=== PATIENT | male | born 1935 | race Caucasian/White ===

== ENCOUNTER 2018-12-11 19:17 | Emergency (ER) | payer MEDICARE ==
[~2018-12-11 19:17] MED LIST: ISOVUE-370 76%-LOCM 1 ML ONE
[2018-12-11 20:03] LABS: #Eosinphils 0.1 thou/uL (0.0-0.7); #Lymphocytes 1.8 thou/uL (1.20-3.40); #Neutrophils 7.5 thou/uL (1.40-6.50); %Basophils 0.5 % (0.0-1.0); %Monocytes 9.5 % (0.0-10.0); Hemoglobin 14.1 g/dL (14.0-18.0); Mean Corpuscular HGB CONC 34.1 g/dL (32.0-36.0); Mean Corpuscular Hemoglobin 30.2 pg (27.0-31.0); Mean Corpuscular Volume 88.5 fL (78.0-98.0); Mean Platelet Volume 7.7 fL (7.4-10.4); Platelet Count 233 thou/uL (130-400); RBC Distribution Width 12.5 % (11.5-14.5); Red Blood Cell (RBC) Count 4.68 mill/uL (4.70-6.10); White Blood Cell (WBC) Count 10.4 thou/uL (4.8-10.8)
[2018-12-11 20:25] LABS: Bilirubin Negative (Negative); Blood, Urine 1+ (Negative); Clarity Clear (Clear); Glucose, Urine (Dipstick) Normal (Negative); Leukocyte 500 Leu/uL (Negative); Nitrite Negative (Negative); Protein, Urine (Dipstick) 20 mg/dL (Neg-Trace); Squamous Epithelial 0-3 HPF (0-3); Urobilinogen Normal mg/dL (Less than 2); WBC/HPF Greater than 50 HPF (0-3)
[2018-12-11 20:29] LABS: ALT (SGPT) 10 U/L (8-55); AST (SGOT) 10 U/L (5-34); Albumin 4.1 g/dL (3.4-4.8); Alkaline Phosphatase 65 U/L (40-110); Anion Gap 13 mmol/L (10-20); BUN (Urea Nitrogen) 19 mg/dL (8.4-25.7); Bilirubin, Total 0.4 mg/dL (0.2-1.2); Calc. Creatinine Clearance 0 mL/min (70-130); Calcium 10.2 mg/dL (7.8-10.44); Carbon Dioxide 26 mmol/L (23-31); Chloride 102 mmol/L (98-107); Estimated GFR-MDRD 51; Globulin 2.5 g/dL (2.4-3.5); Glucose 157 mg/dL (83-110); Lipase 17 U/L (8-78); Potassium 4.4 mmol/L (3.5-5.1); Protein, Total 6.6 g/dL (5.8-8.1); Sodium 137 mmol/L (136-145)
[2018-12-11 20:34] LABS: Bacteria/HPF None Seen HPF (None Seen)
--- NOTE | 2018-12-11 21:01 | CT ---
CT Abdomen Pelvis W Con: 12/11/2018 12:00 AM CLINICAL INFORMATION: Right lower quadrant abdominal pain and fever COMPARISON: None. TECHNIQUE: Multiple contiguous axial images were obtained and a CT of the abdomen and pelvis with IV contrast. C oronal and sagittal reformats were performed. FINDINGS: Lower Chest: Bibasilar atelectasis. Abdomen: Liver: 2.7 cm hypodensity which does not appear definitely well-circumscribed and may represent a hem angioma. Bile Ducts: Normal caliber. Gallbladder: No calcified gallstones. Normal caliber wall. Pancreas: within normal limits. Spleen: within normal limits. Adrenals: within normal limits. Kidneys: Mild to moderate right hydronephrosis. No delay in the right nephrogram compared to the left . There is a 5 mm nonobstructing calcification in the left kidney. Pelvis: Reproductive Organs: Brachytherapy seeds are seen in the prostate. Ureters: 5 mm calcification in the mid right ureter with dilatation of the proximal right ureter. Bladder: Right bladder diverticula. Peritoneum: No ascites or free air, no fluid collection. Bowel: Normal caliber. Scattered diverticula in the colon. Mesentery and Retroperitoneum: No enlarged mesenteric or retroperitoneal lymph nodes. Vessels: Atherosclerotic calcifications. Abdominal Wall: within normal limits. Bones: Degenerative changes in the spine. IMPRESSION: 1. Right mid ureteral calcification with right-sided hydronephrosis. 2. Nonobstructing left renal calcification 3. Nonspecific hepatic hypodensity. This may represent a focal liver mass that could be benign or mal ignant. 4. Diverticulosis
== END 2018-12-11 21:30 | disposition home or self-care (01) ==
LOC: ERS 19:17
DX: N13.2 Hydronephrosis with renal and ureteral calculous obstruction (principal); K21.9 Gastro-esophageal reflux disease without esophagitis; I10 Essential (primary) hypertension; E11.9 Type 2 diabetes mellitus without complications; I48.91 Unspecified atrial fibrillation; Z79.899 Other long term (current) drug therapy; Z79.84 Long term (current) use of oral hypoglycemic drugs
CPT/HCPCS: 36415; 74177; 80053; 81003; 81015; 83690; 85025; Q9966

== ENCOUNTER 2019-01-07 09:28 | Outpatient (CLI) | payer MEDICARE ==
--- NOTE | 2019-01-07 14:16 | CT ---
CT ABDOMEN AND PELVIS WITHOUT IV CONTRAST: INDICATION: Hematuria. COMPARISON: Prior examination dated 12/11/2018. FINDINGS: There are small bilateral pleural effusions, left greater than right. There are areas of subsegmental volume loss involving both lower lobes. There is a small pericardial effusion. Hypodense mass involving the right hepatic lobe is not appreciably changed on image 31 of series 2. The exophytic hyperdense lesion involving the superior pole left kidney on image 40 of series 2 is no t appreciably changed. There is a 5 mm nonobstructing calculus within the left mid kidney. No definite ureteral calculus is evident. Small phleboliths seen adjacent to the distal right ureter in the right hemipelvis. No hydronephrosis is noted. There is moderate vascular calcification involving the abdominopelvic vasculature. There is a moderate amount retained stool within the colon. There are scattered colonic diverticula w ithout evidence of active diverticulitis. Appendix is not definitely seen. The small bowel is of normal caliber. There is a small right posterolateral bladder diverticulum that is stable. Brachytherapy beads are ag ain seen within the lower pelvis within the prostate. There is diffuse osteopenia. There is a stable superior endplate compression abnormality of L3. Anter ior translation of L3 on L4 is stable. Diffuse osteopenia is stable. IMPRESSION: 1. No ureteral calculus or hydronephrosis demonstrated. 2. Stable exophytic lesion off the superior pole of the left kidney. This is incompletely characteriz ed on the current examination and may reflect proteinaceous cyst or solid mass. Renal ultrasound may be helpful for additional characterization. 3. Stable left nephrolithiasis. 4. Small pleural effusions with bibasilar atelectasis. There is a small pericardial effusion. 5. Moderate amount of retained stool within the colon. 6. Brachytherapy beads and stable posterolateral right sided bladder diverticulum. Transcribed Date/Time: 01/07/2019 2:32 PM
== END 2019-01-07 09:29 | disposition home or self-care (01) ==
LOC: CT 09:28
PROVIDERS: ATTEND Urology
DX: N20.1 Calculus of ureter (principal); N28.9 Disorder of kidney and ureter, unspecified; N20.0 Calculus of kidney; J90 Pleural effusion, not elsewhere classified; I31.3 Pericardial effusion (noninflammatory); J98.11 Atelectasis; N32.3 Diverticulum of bladder; K59.00 Constipation, unspecified
CPT/HCPCS: 74176

== ENCOUNTER 2019-03-09 21:45 | Inpatient (IN) | payer MEDICARE ==
[~2019-03-09 21:45] MED LIST changes: -ISOVUE-370 76%-LOCM 1 ML ONE; +Iopamidol-370 76% 500 ML 1 ML ONE
--- NOTE | 2019-03-09 22:12 | RAD ---
Chest AP view INDICATION: Chest pain COMPARISON: None FINDINGS: Lungs:There is airspace opacity within the retrocardiac left lower lobe with obscuration of the left hemidiaphragm. Cardiac silhouette:There is moderate cardiomegaly Pulmonary vasculature:There is mild pulmonary vascular congestion Pleural spaces:There is a small left and tiny right pleural effusion Upper abdomen:No abnormality seen. Osseous structures: No acute osseous abnormality. Additional findings:None. IMPRESSION: Findings of mild CHF. Airspace opacity in left lower lobe may reflect atelectasis or pneu monia. Recommend continued follow-up.
[2019-03-09 22:24] LABS: #Eosinphils 0.1 thou/uL (0.0-0.7); #Lymphocytes 1.6 thou/uL (1.20-3.40); #Monocytes 1.1 thou/uL (0.11-0.59); #Neutrophils 7.9 thou/uL (1.40-6.50); %Basophils 0.1 % (0.0-1.0); %Eosinophils 0.9 % (0.0-10.0); %Lymphocytes 15.1 % (21.0-51.0); %Monocytes 9.9 % (0.0-10.0); %Neutrophils 74.1 % (42.0-75.0); Hemoglobin 14.2 g/dL (14.0-18.0); Mean Corpuscular HGB CONC 33.1 g/dL (32.0-36.0); Mean Corpuscular Hemoglobin 29.9 pg (27.0-31.0); Mean Corpuscular Volume 90.6 fL (78.0-98.0); Mean Platelet Volume 8.1 fL (7.4-10.4); Platelet Count 232 thou/uL (130-400); RBC Distribution Width 12.1 % (11.5-14.5); Red Blood Cell (RBC) Count 4.73 mill/uL (4.70-6.10); White Blood Cell (WBC) Count 10.6 thou/uL (4.8-10.8)
[2019-03-09 22:45] LABS: ALT (SGPT) 10 U/L (8-55); AST (SGOT) 7 U/L (5-34); Albumin 4.2 g/dL (3.4-4.8); Alkaline Phosphatase 69 U/L (40-110); Anion Gap 15 mmol/L (10-20); BUN (Urea Nitrogen) 14 mg/dL (8.4-25.7); Bilirubin, Total 0.7 mg/dL (0.2-1.2); CK (CPK) 24 U/L (30-200); Calc. Creatinine Clearance 0 mL/min (70-130); Calcium 10.6 mg/dL (7.8-10.44); Carbon Dioxide 25 mmol/L (23-31); Chloride 104 mmol/L (98-107); Estimated GFR-MDRD 67; Globulin 2.6 g/dL (2.4-3.5); Glucose 195 mg/dL (83-110); Potassium 4.4 mmol/L (3.5-5.1); Protein, Total 6.8 g/dL (5.8-8.1); Sodium 140 mmol/L (136-145)
[2019-03-09] MEDS ORDERED: Nitroglycerin 0.4 MG TAB 1 EACH ONE (22:54)
--- NOTE | 2019-03-09 23:29 | CT ---
CTA OF THE CHEST AND ABDOMEN UTILIZING AN AORTIC DISSECTION PROTOCOL AND 3-D REFORMATTED IMAGING INDICATION: Chest pain COMPARISON: CT the abdomen and pelvis dated December 11, 2018 FINDINGS: Aorta: No acute aortic stenosis, occlusion or aneurysmal formation demonstrated. Central pulmonary artery: There is partially occlusive thrombus seen within the distal right main pul monary artery with occlusive thrombus extending into the superior right lower lobe segmental pulmonary arterial branch. There is some partially occlusive thrombus seen within segmental branches of the right lower lobe as well as within the lateral right middle lobe. There is occlusive thrombus seen within the lingular lobar pulmonary artery. There is a few partially occlusive thrombi seen within segmental branches of the left lower lobe. Additional thorax findings: There are small bilateral pleural effusions, left greater than right with bibasilar atelectasis. There are coronary artery and thoracic aortic calcifications. Additional abdominal findings: There is a septated cyst within the right hepatic lobe measuring 2.5 c m. Additional smaller cyst is seen within the medial left hepatic lobe that are subcentimeter. An additional 7 mm cyst is seen within the right hepatic lobe. There is a 1.4 cm superior pole left felton l cyst. There is a 4 mm nonobstructing left renal calculus. Right kidney is normal-appearing. Adrenal glands appear within normal limits. Spleen appears within normal limits. No enlarged lymph no zahra are evident. 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 There is mil d narrowing involving the proximal SMA. There is severe narrowing involving the origin of the left renal artery. There is mild narrowing involving the origin of the right renal artery. There is severe narrowing involving the origin of PUJA. Osseous structures: There is a remote superior endplate compression abnormality of L3. There is diffu se osteopenia. There is scattered degenerative and osteoarthritic change present. IMPRESSION: 1. No appreciable aortic stenosis, occlusion or aneurysmal formation demonstrated. 2. Scattered pulmonary embolus as above. Findings called to Dr. Keane at 11:20 PM on March 09. 3. Small bilateral pleural effusions with bibasilar atelectasis. 4. Hepatic and left renal cysts. Left nephrolithiasis. 5. 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 6. Severe narrowing involving the origin of the left renal artery mild narrowing involving the origin of the right renal artery. 7. Severe narrowing of the origin of the PUJA.
[2019-03-09] MEDS ORDERED: Enoxaparin Sodium 100 MG/ML SYRINGE ONE (23:46)
[2019-03-10] MEDS ORDERED: Ondansetron ODT 4 MG TAB PO PRN (00:48)
[2019-03-10] MEDS ORDERED: Calcium Carbonate 500 MG ChewTAB PO PRN (00:48)
[2019-03-10] MEDS ORDERED: Acetaminophen 325 MG TAB PO PRN (00:48)
[2019-03-10] MEDS ORDERED: traZODone HCl 50 MG TAB PO PRN (01:11)
[2019-03-10] MEDS ORDERED: cloNIDine 0.1 MG TAB PO PRN (01:11)
[2019-03-10] MEDS ORDERED: Nitroglycerin 0.4 MG TAB (25 Tab Bottle) SL PRN (01:11)
[2019-03-10] MEDS ORDERED: Polyethylene Glycol 3350 17 GM Packet PO PRN (01:11)
[2019-03-10] MEDS ORDERED: Docusate 100 MG CAP PO PRN (01:11)
--- NOTE | 2019-03-10 01:13 | PDOC.FPRHP ---
- History of Present Illness Chief Complaint: chest pain History of Present Illness: Patient is an 83M with PMHx of afib, HTN, CKD3, DM2 that presents with chest pain. Patient reports that [facility] while he was [facility]. He described the pain as sharp, left-sided, and made worse by deep inspiration. He denied any SOB, cough, n/v. Reports of one episode of loose stool this morning. A&Ox4. Patient reports he is active, though son reportedly stated that he sits in a chair most of the day and is only active with PT for 1hr/day. Patient denies recent travel, denies hx of cancer. He has not been on anticoagulation for his afib. Denies any swelling in his legs though does endorse some pain in his R lower leg. PCP: [facility] ED Course: therapeutic lovenox, nitrostat - Allergies/Adverse Reactions Allergies Allergy/AdvReac Type Severity Reaction Status Date / Time Penicillins Allergy Verified 03/10/19 02:47 - Home Medications Medication Instructions Recorded Confirmed Type Acetaminophen 650 mg PO Q4H PRN 03/10/19 03/10/19 History Acetaminophen With Codeine 1 tablet PO Q6HR PRN 03/10/19 03/10/19 History [Tylenol with Codeine #3] Butalb/Acetaminophen/Caffeine 2 tab PO Q4H PRN 03/10/19 03/10/19 History [Esgic 50-325-40 mg Tablet] Carvedilol 12.5 mg PO BID 03/10/19 03/10/19 History Digoxin [Digox] 125 mcg PO DAILY 03/10/19 03/10/19 History Diltiazem HCl [Dilt-XR] 120 mg PO DAILY 03/10/19 03/10/19 History Docusate [Colace] 100 mg PO BID PRN 03/10/19 03/10/19 History Famotidine 20 mg PO BID 03/10/19 03/10/19 History Folic Acid 1 mg PO DAILY 03/10/19 03/10/19 History Mirtazapine [Remeron] 7.5 mg PO HS 03/10/19 03/10/19 History Nitroglycerin [Nitrostat] 0.4 mg SL Q5MIN 03/10/19 03/10/19 History Polyethylene Glycol 3350 [Miralax] 17 gm PO DAILY PRN 03/10/19 03/10/19 History Potassium Chloride 10 meq PO DAILY 03/10/19 03/10/19 History cloNIDine [Catapres] 0.1 mg PO Q6H PRN 03/10/19 03/10/19 History metFORMIN HCl [Metformin HCl ER] 1,000 mg PO DAILY 03/10/19 03/10/19 History traZODone HCl [Trazodone HCl] 25 mg PO HS PRN 03/10/19 03/10/19 History - History PMHx: afib, HTN, CKD3, DM2 PSHx: appendectomy, R shoulder sx FHx: non-contributory Social: previous smoker, occasional etoh use, no drug use - Review of Systems General: denies: fever/chills, weight/appetite/sleep changes Eyes: denies: eye pain, vision changes ENT: denies: nasal congestion, rhinorrhea Respiratory: denies: cough, shortness of breath Cardiovascular: reports: chest pain. denies: palpitation, edema Gastrointestinal: reports: diarrhea. denies: nausea, vomiting Genitourinary: denies: dysuria, polyuria Skin: denies: rashes, jaundice Musculoskeletal: denies: pain, tenderness Neurological: denies: numbness, syncope Psychological: denies: anxiety, depression - Vital signs BP: [133/98] HR: [70] RR: [18] Tmax: [98.1] Pox: [95]% on [RA] Wt: [90.31kg] - Physical Exam Constitutional: NAD, awake, alert and oriented, well developed HEENT: normocephalic and atraumatic, EOMI, MMM Neck: supple, FROM Chest: no-tender to palpation, no lesions Heart: normal S1/S2, other (irregularly irregular rhythm, no edema of BLE) Lungs: CTAB, no respiratory distress Abdomen: soft, non-tender Musculoskeletal: normal structure, normal tone, ROM grossly normal, other ( negative homans sign) Neurological: no focal deficit, normal sensation Skin: no rash/lesions, good turgor Heme/Lymphatic: no unusual bruising or bleeding, no purpura Psychiatric: normal mood and affect FMR H&P: Results - Labs Result Diagrams: 03/10/19 04:24 03/10/19 04:24 Lab results: WBC 10.6 thou/uL (4.8-10.8) 03/09/19 22:12 Hgb 14.2 g/dL (14.0-18.0) 03/09/19 22:12 Hct 42.8 % (42.0-52.0) 03/09/19 22:12 MCV 90.6 fL (78.0-98.0) 03/09/19 22:12 Plt Count 232 thou/uL (130-400) 03/09/19 22:12 Neutrophils % 74.1 % (42.0-75.0) 03/09/19 22:12 Sodium 140 mmol/L (136-145) 03/09/19 22:12 Potassium 4.4 mmol/L (3.5-5.1) 03/09/19 22:12 Chloride 104 mmol/L (98-107) 03/09/19 22:12 Carbon Dioxide 25 mmol/L (23-31) 03/09/19 22:12 BUN 14 mg/dL (8.4-25.7) 03/09/19 22:12 Creatinine 1.05 mg/dL (0.7-1.3) 03/09/19 22:12 Glucose 195 mg/dL (83-110) H 03/09/19 22:12 Calcium 10.6 mg/dL (7.8-10.44) H 03/09/19 22:12 Total Bilirubin 0.7 mg/dL (0.2-1.2) 03/09/19 22:12 AST 7 U/L (5-34) 03/09/19 22:12 ALT 10 U/L (8-55) 03/09/19 22:12 Alkaline Phosphatase 69 U/L (40-110) 03/09/19 22:12 Creatine Kinase 24 U/L (30-200) L 03/09/19 22:12 B-Natriuretic Peptide 88.5 pg/mL (0-100) 03/09/19 22:12 Serum Total Protein 6.8 g/dL (5.8-8.1) 03/09/19 22:12 Albumin 4.2 g/dL (3.4-4.8) 03/09/19 22:12 - Radiology Interpretation Chest x-ray Status: report reviewed by me (Aorta: No acute aortic stenosis, occlusion or aneurysmal formation demonstrated. Central pulmonary artery: There is partially occlusive thrombus seen within the distal right main pul monary artery with occlusive thrombus extending into the superior right lower lobe segmental pulmonary arterial branch. There is some partially occlusive thrombus seen within segmental branches of the right lower lobe as well as within the lateral right middle lobe. There is occlusive thrombus seen within the lingular lobar pulmonary artery. There is a few partially occlusive thrombi seen within segmental branches of the left lower lobe. Additional thorax findings: There are small bilateral pleural effusions, left greater than right with bibasilar atelectasis. There are coronary artery and thoracic aortic calcifications. Additional abdominal findings: There is a septated cyst within the right hepatic lobe measuring 2.5 c m. Additional smaller cyst is seen within the medial left hepatic lobe that are subcentimeter. An additional 7 mm cyst is seen within the right hepatic lobe. There is a 1.4 cm superior pole left felton l cyst. There is a 4 mm nonobstructing left renal calculus. Right kidney is normal-appearing. Adrenal glands appear within normal limits. Spleen appears within normal limits. No enlarged lymph no zahra are evident. 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 There is mil d narrowing involving the proximal SMA. There is severe narrowing involving the origin of the left renal artery. There is mild narrowing involving the origin of the right renal artery. There is severe narrowing involving the origin of PUJA.) FMR H&P: A/P - Problem List (1) Pulmonary embolus Current Visit: Yes Status: Acute Code(s): I26.99 - OTHER PULMONARY EMBOLISM WITHOUT ACUTE COR PULMONALE (2) HTN (hypertension) Current Visit: Yes Status: Chronic Code(s): I10 - ESSENTIAL (PRIMARY) HYPERTENSION (3) Afib Current Visit: Yes Status: Chronic Code(s): I48.91 - UNSPECIFIED ATRIAL FIBRILLATION (4) CKD (chronic kidney disease) stage 3, GFR 30-59 ml/min Current Visit: Yes Status: Chronic Code(s): N18.3 - CHRONIC KIDNEY DISEASE, STAGE 3 (MODERATE) (5) DM2 (diabetes mellitus, type 2) Current Visit: Yes Status: Chronic - Plan Patient is an 83M with PMHx of afib, HTN, CKD3, DM2 that is admitted for pulmonary embolus #Pulmonary embolus -CT chest shows multiple pulmonary emboli throughout lungs, including in right main artery -patient maintaining oxygenation well on RA -no recent travel hx, no known cancer, no known hx of DVT/PE -[facility] outside of daily [facility] -right leg painful though not swollen; bilateral LE dopplers pending -coagulation studies pending -started on therapeutic lovenox in ED, continue -can consider switching to NOAC in am -will monitor on telemetry #Afib -rate controlled currently -had not been on anticoagulation -will continue to monitor on telemetry #HTN -continue home meds #CKD3 -creatinine and GFR improved from when patient was here in december 2018 -avoid renally toxic medications #DM2 -continue home metformin -ACHS accuchecks DVT ppx: therapeutic lovenox Diet: HH, CC Dispo: inpatient for therapeutic anticoagulation for PE; PE workup pending Code: DNAR PCP: [facility] FMR H&P: Upper Level - Pertinent history 83 yo M with PMHx of afib, DM2, and HTN here with complaint of sharp chest pain that radiates to the back which onset earlier this afternoon. In the ED his RR and O2 sat were normal and he had no SOB. CTA in the ED found a R sided PE. He was given lovenox for treatment. Per family he does not get out of his chair very frequently. He complains of R sided leg pain. Notes that chest pain is made worse with deep inspiration PMHx Afib HTN Social Hx No tobacco, etoh or drugs - Pertinent findings See pr intern note for full ROS, PE, vitals, and labs ROS General Denies chills and fever HEENT denies sore throat or ear pain CV Complains of CP. Denies diaphoresis or palpitations Resp Denies SOB or cough GI Denies abdominal pain or n/v denies dysuria and frequency Neuro denies weakness or numbness. PE General A&O x4 HEENT NCAT CV irregularly irregular, no murmur Resp CTA Abd soft, non tender Neuro no focal deficits Extremities no swelling, palpable cords, homans negative - Plan Date/Time: 03/10/19 0113 Jorge Pablo DO, have evaluated this patient and agree with findings/plan as outlined by pr intern resident. Pertinent changes/additions are listed here. 1.PE - Admit to tele -Continue Lovenox, will transition to orals pending insurance -Not currently requiring O2, hemodynamically stable -b/l LE Doppler and hypercoagulability panel 2.HTN -Restart home meds 3.Afib -Known chronic afib. Currently rate controlled. Monitor on tele 4.DM2 -Home meds -Low carb diet -Accucheck ACHS Diet Heart healthy, low carb Code DNAR PPx lovenox Dispo: pt is in fair condition. Would expect 2-3 day hospitalization pending coverage of anticoagulation
[2019-03-10 02:25] LABS: INR-International Normal Ratio 1.1; PTT 34.2 SEC (22.9-36.1); Prothrombin Time 14.6 SEC (12.0-14.7)
[2019-03-10 02:26] LABS: D-Dimer Test 1.11 *mcg/mL (0.27-0.43)
[2019-03-10 02:55] VITALS: BMI 27.0
[2019-03-10 04:53] LABS: #Basophils 0.1 thou/uL (0.0-0.2); #Eosinphils 0.1 thou/uL (0.0-0.7); #Lymphocytes 1.7 thou/uL (1.20-3.40); #Monocytes 1.1 thou/uL (0.11-0.59); #Neutrophils 6.4 thou/uL (1.40-6.50); %Basophils 0.9 % (0.0-1.0); %Eosinophils 0.7 % (0.0-10.0); %Lymphocytes 17.8 % (21.0-51.0); %Monocytes 11.7 % (0.0-10.0); Hemoglobin 13.1 g/dL (14.0-18.0); Mean Corpuscular HGB CONC 31.9 g/dL (32.0-36.0); Mean Corpuscular Hemoglobin 28.8 pg (27.0-31.0); Mean Corpuscular Volume 90.2 fL (78.0-98.0); Mean Platelet Volume 8.4 fL (7.4-10.4); Platelet Count 218 thou/uL (130-400); RBC Distribution Width 12.1 % (11.5-14.5); Red Blood Cell (RBC) Count 4.56 mill/uL (4.70-6.10); White Blood Cell (WBC) Count 9.3 thou/uL (4.8-10.8)
[2019-03-10 05:10] LABS: Anion Gap 13 mmol/L (10-20); BUN (Urea Nitrogen) 13 mg/dL (8.4-25.7); Calc. Creatinine Clearance 76 mL/min (70-130); Calcium 10.4 mg/dL (7.8-10.44); Carbon Dioxide 24 mmol/L (23-31); Chloride 104 mmol/L (98-107); Estimated GFR-MDRD 77; Glucose 175 mg/dL (83-110); Potassium 4.2 mmol/L (3.5-5.1); Sodium 137 mmol/L (136-145)
[2019-03-10] MEDS ORDERED: Potassium Chloride 10 MEQ TAB PO SCH (08:00)
[2019-03-10] MEDS ORDERED: metFORMIN XR 500 MG TAB PO SCH (08:00)
[2019-03-10] MEDS ORDERED: Digoxin 0.125 MG TAB PO SCH (09:00)
[2019-03-10] MEDS ORDERED: Famotidine 20 MG TAB PO SCH (09:00)
[2019-03-10] MEDS ORDERED: Enoxaparin Sodium 100 MG/ML SYRINGE SC SCH (09:00)
[2019-03-10] MEDS ORDERED: Folic Acid 1 MG TAB PO SCH (09:00)
[2019-03-10] MEDS: Carvedilol 25 MG TAB PO SCH ×2 (09:29→15:41)
--- NOTE | 2019-03-10 09:41 | ULT ---
BILATERAL LOWER EXTREMITY VENOUS ULTRASOUND: HISTORY: Pulmonary artery embolism. COMPARISON: None. TECHNIQUE: Multiplanar grayscale and color Doppler images were obtained in a bilateral lower extremity venous ul trasound. Spectral analysis of the Doppler waveforms were performed. FINDINGS: Right lower extremity: There is thrombus in the proximal femoral vein and distal femoral vein. There is lack of compressibility in the mid femoral vein. Left lower extremity: There is lack of compressibility and thrombus in the common femoral vein. There is compressibility, presence of flow in the femoral vein, popliteal vein, posterior tibial vein, greater saphenous vein and profunda femoral vein. IMPRESSION: 1. Nonocclusive thrombus in the proximal and mid right femoral vein. Thrombus may be chronic. 2. Floating thrombus in the left common femoral vein, acute. Transcribed Date/Time: 03/10/2019 9:46 AM
--- NOTE | 2019-03-10 11:14 | HP ---
I have examined the patient and discussed the case with Dr. Camelia Martin. I agreed with her assessment and plan. HISTORY OF PRESENT ILLNESS: Briefly, Mr. River is an 83-year-old white male patient admitted with chest pain. Subsequent workup revealed a pulmonary embolus. He has been admitted for further treatment, workup, and anticoagulation. PHYSICAL EXAMINATION: VITAL SIGNS: His blood pressure is 130/80, heart rate is 70, respirations 18. He is afebrile. His room air pulse ox is 95%. GENERAL: He is hard of hearing, but otherwise appears to be in no distress. He is not overtly tachypneic or express any concerns of dyspnea. He is currently chest pain free. He appears to be alert and oriented, although this is difficult to assess because of his hearing loss. EAR, NOSE, AND THROAT: No erythema or exudate. NECK: Supple. No bruits. CARDIAC: His heart rhythm is irregularly irregular. No gallop or murmur noted. LUNGS: Clear without rales, wheezes, although diminished. He has no respiratory distress. ABDOMEN: Flat and soft without guarding or rebound. NEUROLOGIC: No focal deficits. LABORATORY DATA: CBC; white count is 10,600, hemoglobin 14.2, hematocrit 42.8 with an MCV of 90.6. Chemistry; sodium is 140, potassium 4.4, chloride 104, bicarb 25, BUN 14, and creatinine 1.05. ASSESSMENT: Pulmonary embolus. PLAN: Continue Lovenox. Later transition to Eliquis if insurance allows. Job ID: [id number]
[2019-03-10 13:29] LABS: Cardiolipin IgA Ab 5.6 APL-U/mL (<14 Negative); Cardiolipin IgG Ab Less than 0.5 GPL-U/mL (<10 Negative); Cardiolipin IgM Ab 2.1 MPL-U/mL (<10 Negative); EliA APS New Method **** NEW METHOD ****
[2019-03-10 16:38] VITALS: BP 165/78; TEMP 97.8
[2019-03-10] MEDS ORDERED: Apixaban 5 MG TAB PO SCH (21:00)
[2019-03-10] MEDS ORDERED: Mirtazapine 15 MG TAB PO SCH (21:00)
--- NOTE | 2019-03-12 00:38 | DIS ---
DATE OF ADMISSION: 03/10/2019 DATE OF DISCHARGE: 03/10/2019 DISCHARGE ATTENDING: Adele Rubi, PGY-2. ADMITTING ATTENDING: Alejandro Leigh MD DISCHARGE ATTENDING: Alejandro Leigh MD. CONSULTS: None. PROCEDURES: 1. Chest x-ray on 03/09/2019, findings of mild CHF. Airspace opacity in the left lower lobe, may reflect atelectasis or pneumonia. Recommend continued followup. 2. CT dissection on 03/09/2019, no appreciable aortic stenosis, occlusion, or aneurysm formation demonstrated. Scattered pulmonary emboli as above. There is partially occlusive thrombus seen in the distal right main pulmonary artery with occlusive thrombus extending into the right lower lobe segmental pulmonary arterial branch. There is some partially occlusive thrombus seen within segmental branches of the right lower lobe as well as within the lateral right middle lobe. Occlusive thrombus seen within the lingular lobar pulmonary artery. There are a few partially occlusive thrombi seen within segmental branches of the left lower lobe. Small bilateral pleural effusions with bibasilar atelectasis. Hepatic and left renal cyst. Left nephrolithiasis. 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 Severe narrowing involving the origin of the left renal artery, mild narrowing involving the origin of the right renal artery. Severe narrowing of the origin of PUJA. 3. Venogram on 03/10/2019. Nonocclusive thrombus in the proximal and mid right femoral vein. Thrombus may be chronic. Floating thrombus in the left common femoral vein, acute. PRIMARY DIAGNOSIS: Pulmonary emboli. SECONDARY DIAGNOSES: 1. Atrial fibrillation. 2. Hypertension. 3. Chronic kidney disease 3. 4. Type 2 diabetes. DISCHARGE MEDICATIONS: 1. Eliquis 10 mg b.i.d. x7 days, then 5 mg b.i.d. thereafter. 2. Tylenol 650 mg q.6 hours p.r.n. 3. Tylenol with codeine 1 tablet p.o. q.6 hours p.r.n. 4. Esgic 50/325/40 mg two tablets p.o. q.4 hours p.r.n. 5. Carvedilol 12.5 mg b.i.d. 6. Clonidine 0.1 mg q.6 hours p.r.n. 7. Digoxin 125 mcg daily. 8. Diltiazem extended release 120 mg daily. 9. Colace 100 mg b.i.d. p.r.n. 10. Famotidine 20 mg b.i.d. 11. Folic acid 1 mg p.o. daily. 12. Metformin 1000 mg p.o. daily extended release. 13. Mirtazapine 7.5 mg at bedtime. 14. Nitroglycerin 0.4 mg sublingual q.5 minutes p.r.n. 15. MiraLAX 17 g daily p.r.n. 16. Potassium chloride 10 mEq p.o. daily. 17. Trazodone 25 mg p.o. at bedtime p.r.n. HISTORY OF PRESENT ILLNESS/HOSPITAL COURSE: Mr. River is an 83-year-old man, presents with chest pain and on CT dissection protocol was found to have extensive pulmonary emboli. His chest pain did resolve a little bit prior to discharge and he had Tylenol No.3 available for pain. He was started on therapeutic Lovenox in the ED and was transitioned to Eliquis prior to discharge. Consideration for a lower dose of Eliquis was considered, however, he would likely regular dosing as his renal function is normal. Bilateral lower extremity Dopplers were negative. In regard to his chronic medical conditions of atrial fibrillation, hypertension, diabetes, these were controlled on home medications throughout the course of hospitalization. His anticoagulant labs were normal. DISPOSITION: Stable. DISCHARGE INSTRUCTIONS: 1. Location: [facility]. 2. Diet: Low-sodium. 3. Activity: No restrictions. 4. Follow up with Dr. Mujica within 7 days. Job ID: [id number]
== END 2019-03-10 16:00 | DRG 176 ==
LOC: ERS 21:45 → ERHOLD 03-10 00:03 → 2NO 03-10 02:32
PROVIDERS: ADMIT Family Medicine; ATTEND Family Medicine
DX: I26.99 Other pulmonary embolism without acute cor pulmonale (principal); I48.20 Chronic atrial fibrillation, unspecified; I12.9 Hypertensive chronic kidney disease with stage 1 through stage 4 chronic kidney disease, or unspecified chronic kidney disease; E11.22 Type 2 diabetes mellitus with diabetic chronic kidney disease; N18.3 Chronic kidney disease, stage 3 (moderate); Z98.890 Other specified postprocedural states; Z66 Do not resuscitate; Z88.0 Allergy status to penicillin; Z79.01 Long term (current) use of anticoagulants
CPT/HCPCS: 36415; 36416; 71045; 71275; 72191; 74175; 80048; 80053; 81240; 81241; 82550; 83090; 83880; 84484; 85025; 85240; 85300; 85303; 85305; 85307; 85379; 85598; 85610; 85730; 86147; 93005; 93970; J1650; Q9967

== ENCOUNTER 2021-01-28 00:10 | Emergency (ER) | payer MEDICARE ==
[2021-01-28 01:09] LABS: #Eosinphils 0.2 thou/uL (0.0-0.7); #Lymphocytes 1.1 thou/uL (1.20-3.40); #Monocytes 0.5 thou/uL (0.11-0.59); #Neutrophils 4.2 thou/uL (1.40-6.50); %Eosinophils 3.8 % (0.0-10.0); %Lymphocytes 18.8 % (21.0-51.0); %Monocytes 8.3 % (0.0-10.0); %Neutrophils 69.1 % (42.0-75.0); Hemoglobin 12.5 g/dL (14.0-18.0); Mean Corpuscular HGB CONC 34.4 g/dL (32.0-36.0); Mean Corpuscular Hemoglobin 31.6 pg (27.0-31.0); Mean Corpuscular Volume 91.8 fL (78.0-98.0); Mean Platelet Volume 6.9 fL (7.4-10.4); Platelet Count 217 thou/uL (130-400); RBC Distribution Width 11.9 % (11.5-14.5); Red Blood Cell (RBC) Count 3.96 mill/uL (4.70-6.10); White Blood Cell (WBC) Count 6.1 thou/uL (4.8-10.8)
[2021-01-28 01:28] LABS: ALT (SGPT) 16 U/L (8-55); AST (SGOT) 15 U/L (5-34); Albumin 3.7 g/dL (3.4-4.8); Alkaline Phosphatase 45 U/L (40-110); Anion Gap 14 mmol/L (10-20); BUN (Urea Nitrogen) 20 mg/dL (8.4-25.7); Bilirubin, Total 0.3 mg/dL (0.2-1.2); Calc. Creatinine Clearance 0 mL/min (70-130); Calcium 9.9 mg/dL (7.8-10.44); Carbon Dioxide 24 mmol/L (23-31); Chloride 101 mmol/L (98-107); Globulin 2.8 g/dL (2.4-3.5); Glucose 159 mg/dL (83-110); Potassium 4.5 mmol/L (3.5-5.1); Protein, Total 6.5 g/dL (5.8-8.1); Sodium 134 mmol/L (136-145)
[2021-01-28 02:33] LABS: SARS-CoV-2 NAA Rapid Test Not Detected (NotDetected)
== END 2021-01-28 09:25 ==
LOC: ERS 00:10
DX: R50.9 Fever, unspecified (principal); Z20.822 Contact with and (suspected) exposure to COVID-19; I12.9 Hypertensive chronic kidney disease with stage 1 through stage 4 chronic kidney disease, or unspecified chronic kidney disease; E11.22 Type 2 diabetes mellitus with diabetic chronic kidney disease; N18.30 Chronic kidney disease, stage 3 unspecified; D63.1 Anemia in chronic kidney disease; K21.9 Gastro-esophageal reflux disease without esophagitis; I48.91 Unspecified atrial fibrillation
CPT/HCPCS: 0240U; 71045; 80053; 85025; 99284; 36415

== ENCOUNTER → 2021-09-27 | Day surgery (SDC) | payer MEDICARE, MEDICAID ==
[~2021-09-27] MED LIST changes: +Heparin 1,000 UNITS/ML VIAL ONE; -Iopamidol-370 76% 500 ML 1 ML ONE
== END ==
LOC: SPEC 09:36
PROVIDERS: ATTEND Internal Medicine
PROC: 02HV33Z Insertion of Infusion Device into Superior Vena Cava, Percutaneous Approach (ICD-10-PCS; principal; 2021-09-27)
PROC: 3E04329 Introduction of Other Anti-infective into Central Vein, Percutaneous Approach (ICD-10-PCS; 2021-09-27)
DX: N39.0 Urinary tract infection, site not specified (principal); K21.9 Gastro-esophageal reflux disease without esophagitis; I12.9 Hypertensive chronic kidney disease with stage 1 through stage 4 chronic kidney disease, or unspecified chronic kidney disease; E11.22 Type 2 diabetes mellitus with diabetic chronic kidney disease; N18.30 Chronic kidney disease, stage 3 unspecified; Z88.0 Allergy status to penicillin; Z86.711 Personal history of pulmonary embolism
CPT/HCPCS: 36569; C1751; J1644

== ENCOUNTER 2023-02-11 20:32 | Inpatient (IN) | payer MEDICARE, MEDICAID ==
[2023-02-11 21:37] LABS: #Eosinphils 0.1 thou/uL (0.0-0.7); #Monocytes 0.7 thou/uL (0.11-0.59); #Neutrophils 18.2 thou/uL (1.40-6.50); %Basophils 0.2 % (0.0-1.0); %Eosinophils 0.3 % (0.0-10.0); %Lymphocytes 5.8 % (21.0-51.0); %Monocytes 3.4 % (0.0-10.0); %Neutrophils 89.8 % (42.0-75.0); Hematocrit 44.1 % (42.0-52.0); Hemoglobin 14.4 g/dL (14.0-18.0); Mean Corpuscular HGB CONC 32.7 g/dL (32.0-36.0); Mean Corpuscular Hemoglobin 27.7 pg (27.0-31.0); Mean Corpuscular Volume 84.8 fl (78.0-98.0); Mean Platelet Volume 9.5 fL (7.4-10.4); Platelet Count 450 10x3/uL (130-400); RBC Distribution Width 13.3 % (11.5-14.5); White Blood Cell (WBC) Count 20.3 10x3/uL (4.8-10.8)
[2023-02-11] MEDS ORDERED: Ondansetron PF 4 MG/2 ML Vial ONE (21:52)
[2023-02-11 21:59] LABS: ALT (SGPT) 8 U/L (8-55); AST (SGOT) 14 U/L (5-34); Albumin 4.7 g/dL (3.4-4.8); Alkaline Phosphatase 70 U/L (40-110); Anion Gap 18 mmol/L (10-20); BUN (Urea Nitrogen) 45 mg/dL (8.4-25.7); Bilirubin, Total 0.6 mg/dL (0.2-1.2); Calc. Creatinine Clearance 0 mL/min (70-130); Calcium 10.7 mg/dL (7.8-10.44); Carbon Dioxide 21 mmol/L (23-31); Chloride 100 mmol/L (98-107); Estimated GFR 15; Globulin 3.5 g/dL (2.4-3.5); Glucose 234 mg/dL (83-110); Lipase 57 U/L (8-78); Potassium 5.6 mmol/L (3.5-5.1); Protein, Total 8.2 g/dL (5.8-8.1); Sodium 133 mmol/L (136-145)
[2023-02-12] MEDS ORDERED: Docusate 100 MG CAP PO PRN (00:51)
[2023-02-12] MEDS ORDERED: Acetaminophen/Codeine 30-300mg Tablet PO PRN (00:51)
[2023-02-12] MEDS ORDERED: cloNIDine 0.1 MG TAB PO PRN (00:51)
[2023-02-12] MEDS ORDERED: Polyethylene Glycol 3350 17 GM Packet PO PRN (00:51)
[2023-02-12] MEDS ORDERED: HumaLOG 300 UNITS/3 ML VIAL SC PRN ×2 (00:55)
[2023-02-12] MEDS ORDERED: Dextrose 5% in Water 1,000 ML IV PRN (00:55)
[2023-02-12] MEDS ORDERED: Dextrose 50% Abboject 50 ML SYRINGE SLOW IVP PRN (00:55)
[2023-02-12] MEDS ORDERED: Glucagon 1 MG/ML KIT IM PRN (00:55)
[2023-02-12] MEDS ORDERED: Acetaminophen 325 MG TAB PO PRN ×2 (00:55→01:00)
[2023-02-12] MEDS ORDERED: Ondansetron PF 4 MG/2 ML Vial IVP PRN ×2 (00:55→01:00)
[2023-02-12] MEDS ORDERED: Nitroglycerin 0.4 MG TAB (25 Tab Bottle) SL PRN (01:00)
[2023-02-12] MEDS ORDERED: Ondansetron ODT 4 MG TAB SL PRN (01:00)
[2023-02-12] MEDS ORDERED: Sodium Chloride 0.9% 1,000 ML IV SCH ×2 (01:00→01:15)
[2023-02-12 02:40] VITALS: BMI 25.7
[2023-02-12 04:53] LABS: #Monocytes 0.5 thou/uL (0.11-0.59); #Neutrophils 15.1 thou/uL (1.40-6.50); %Basophils 0.2 % (0.0-1.0); %Eosinophils 0.2 % (0.0-10.0); %Lymphocytes 7.5 % (21.0-51.0); %Monocytes 3.1 % (0.0-10.0); %Neutrophils 88.5 % (42.0-75.0); Hemoglobin 11.6 g/dL (14.0-18.0); Mean Corpuscular HGB CONC 33.2 g/dL (32.0-36.0); Mean Corpuscular Hemoglobin 28.4 pg (27.0-31.0); Mean Corpuscular Volume 85.3 fl (78.0-98.0); Mean Platelet Volume 9.5 fL (7.4-10.4); Platelet Count 369 10x3/uL (130-400); RBC Distribution Width 13.2 % (11.5-14.5); Red Blood Cell (RBC) Count 4.09 mill/uL (4.70-6.10)
[2023-02-12 04:54] LABS: Hematocrit 34.9 % (42.0-52.0)
[2023-02-12 05:17] LABS: Anion Gap 19 mmol/L (10-20); BUN (Urea Nitrogen) 44 mg/dL (8.4-25.7); Calc. Creatinine Clearance 18 mL/min (70-130); Calcium 9.2 mg/dL (7.8-10.44); Carbon Dioxide 23 mmol/L (23-31); Chloride 103 mmol/L (98-107); Estimated GFR 16; Glucose 219 mg/dL (83-110); Potassium 4.6 mmol/L (3.5-5.1); Sodium 140 mmol/L (136-145)
[2023-02-12] MEDS ORDERED: HumaLOG 300 UNITS/3 ML VIAL ONE (06:21)
[2023-02-12] MEDS: Sodium Chloride 0.9% 1,000 ML IV SCH ×3 (06:29→21:15)
[2023-02-12] MEDS ORDERED: Fleet Saline Enema 133 ML BOT PR SCH (06:30)
[2023-02-12] MEDS ORDERED: Apixaban 5 MG TAB PO SCH (09:00)
[2023-02-12] MEDS ORDERED: Apixaban 2.5 MG TAB PO SCH (09:00)
[2023-02-12] MEDS ORDERED: Digoxin 0.125 MG TAB PO SCH (09:00)
[2023-02-12] MEDS ORDERED: Potassium Chloride 10 MEQ TAB PO SCH (09:00)
[2023-02-12] MEDS ORDERED: dilTIAZem CD 120 MG CAP PO SCH (09:00)
[2023-02-12] MEDS ORDERED: Carvedilol 6.25 MG TAB PO SCH (09:00)
[2023-02-12] MEDS: Folic Acid 1 MG TAB PO SCH (10:22)
[2023-02-12] MEDS: Famotidine 20 MG TAB PO SCH (10:22)
[2023-02-12] MEDS ORDERED: Communication Order-Pharmacy FS PRN (11:29)
[2023-02-12] MEDS ORDERED: Enoxaparin 100 MG (1 mL) SYRINGE ONE (15:03)
[2023-02-12] MEDS: Enoxaparin 100 MG (1 mL) SYRINGE SC SCH (15:48)
[2023-02-12 15:55] LABS: Magnesium 1.9 mg/dL (1.6-2.6)
[2023-02-12] MEDS: Mirtazapine 15 MG TAB PO SCH (21:14)
[2023-02-12] MEDS: traZODone HCl 50 MG TAB PO PRN (21:14)
[2023-02-12 22:07] LABS: Bacteria/HPF 4+ HPF (None Seen); Bilirubin Negative (Negative); Blood, Urine Negative (Negative); Clarity Turbid (Clear); Glucose, Urine (Dipstick) Normal (Negative); Ketone, Urine Negative (Negative); Leukocyte 500 Leu/uL (Negative); Nitrite 1+ (Negative); Protein, Urine (Dipstick) 70 mg/dL (Neg-Trace); RBC/HPF 0-3 HPF (0-3); Specific Gravity, Urine 1.016 (1.002-1.036); Squamous Epithelial None Seen HPF (0-3); Triple Phosphate Crystal Rare HPF (None Seen); Urobilinogen Normal mg/dL (Less than 2); pH, Urine 8.5 (5.0-9.0)
[2023-02-13] MEDS: Sodium Chloride 0.9% 1,000 ML IV SCH ×3 (03:34→15:25)
[2023-02-13 06:35] LABS: #Eosinphils 0.3 thou/uL (0.0-0.7); #Monocytes 0.6 thou/uL (0.11-0.59); #Neutrophils 4.6 thou/uL (1.40-6.50); %Basophils 0.3 % (0.0-1.0); %Lymphocytes 25.7 % (21.0-51.0); %Monocytes 7.9 % (0.0-10.0); %Neutrophils 61.7 % (42.0-75.0); Hematocrit 33.5 % (42.0-52.0); Hemoglobin 10.4 g/dL (14.0-18.0); Mean Corpuscular Hemoglobin 27.9 pg (27.0-31.0); Mean Corpuscular Volume 89.8 fl (78.0-98.0); Mean Platelet Volume 9.7 fL (7.4-10.4); Platelet Count 288 10x3/uL (130-400); RBC Distribution Width 13.4 % (11.5-14.5); Red Blood Cell (RBC) Count 3.73 mill/uL (4.70-6.10); White Blood Cell (WBC) Count 7.5 10x3/uL (4.8-10.8)
[2023-02-13 07:06] LABS: Anion Gap 12 mmol/L (10-20); BUN (Urea Nitrogen) 40 mg/dL (8.4-25.7); Calc. Creatinine Clearance 24 mL/min (70-130); Calcium 8.7 mg/dL (7.8-10.44); Carbon Dioxide 17 mmol/L (23-31); Chloride 113 mmol/L (98-107); Estimated GFR 24; Glucose 108 mg/dL (83-110); Magnesium 1.8 mg/dL (1.6-2.6); Potassium 4.3 mmol/L (3.5-5.1); Sodium 138 mmol/L (136-145)
[2023-02-13] MEDS ORDERED: LevoFLOXacin 750 mg/D5W 750 MG in Premix 1 BAG IVPB SCH (10:00)
[2023-02-13] MEDS: Folic Acid 1 MG TAB PO SCH (10:40)
[2023-02-13] MEDS: Enoxaparin 100 MG (1 mL) SYRINGE SC SCH (15:24)
[2023-02-13] MEDS: traZODone HCl 50 MG TAB PO PRN (20:18)
[2023-02-13] MEDS: Mirtazapine 15 MG TAB PO SCH (20:18)
[2023-02-14] MEDS: Sodium Chloride 0.9% 1,000 ML IV SCH ×4 (06:13→18:27)
[2023-02-14 06:30] LABS: #Eosinphils 0.2 thou/uL (0.0-0.7); #Monocytes 0.6 thou/uL (0.11-0.59); #Neutrophils 4.9 thou/uL (1.40-6.50); %Basophils 0.4 % (0.0-1.0); %Eosinophils 2.6 % (0.0-10.0); %Lymphocytes 25.5 % (21.0-51.0); %Monocytes 8.1 % (0.0-10.0); Hematocrit 32.5 % (42.0-52.0); Hemoglobin 10.1 g/dL (14.0-18.0); Mean Corpuscular HGB CONC 31.1 g/dL (32.0-36.0); Mean Corpuscular Hemoglobin 27.5 pg (27.0-31.0); Mean Corpuscular Volume 88.6 fl (78.0-98.0); Mean Platelet Volume 9.7 fL (7.4-10.4); Platelet Count 281 10x3/uL (130-400); RBC Distribution Width 13.2 % (11.5-14.5); Red Blood Cell (RBC) Count 3.67 mill/uL (4.70-6.10); White Blood Cell (WBC) Count 7.8 10x3/uL (4.8-10.8)
[2023-02-14 07:13] LABS: Anion Gap 12 mmol/L (10-20); BUN (Urea Nitrogen) 35 mg/dL (8.4-25.7); Calc. Creatinine Clearance 26 mL/min (70-130); Calcium 8.9 mg/dL (7.8-10.44); Carbon Dioxide 17 mmol/L (23-31); Chloride 114 mmol/L (98-107); Estimated GFR 28; Glucose 85 mg/dL (83-110); Magnesium 1.6 mg/dL (1.6-2.6); Potassium 4.3 mmol/L (3.5-5.1); Sodium 139 mmol/L (136-145)
[2023-02-14] MEDS ORDERED: MD-Gastroview 120 ML BOT ONE ×2 (09:00→10:12)
[2023-02-14] MEDS: Folic Acid 1 MG TAB PO SCH (15:51)
[2023-02-14] MEDS: Famotidine 20 MG TAB PO SCH (15:51)
[2023-02-14] MEDS: Enoxaparin 80 MG (0.8 mL) SYRINGE SC SCH (16:05)
[2023-02-14] MEDS ORDERED: Magnesium 2 GM/50 ML(in water) 2 GM in Premix 1 BAG IVPB SCH (16:45)
[2023-02-14] MEDS: traZODone HCl 50 MG TAB PO PRN (20:55)
[2023-02-14] MEDS: Mirtazapine 15 MG TAB PO SCH (20:55)
[2023-02-15] MEDS: Sodium Chloride 0.9% 1,000 ML IV SCH ×3 (03:14→11:20)
[2023-02-15 05:08] LABS: Anion Gap 12 mmol/L (10-20); BUN (Urea Nitrogen) 29 mg/dL (8.4-25.7); Calc. Creatinine Clearance 27 mL/min (70-130); Calcium 8.8 mg/dL (7.8-10.44); Carbon Dioxide 18 mmol/L (23-31); Chloride 112 mmol/L (98-107); Estimated GFR 30; Glucose 145 mg/dL (83-110); Potassium 3.6 mmol/L (3.5-5.1); Sodium 138 mmol/L (136-145)
[2023-02-15] MEDS: Folic Acid 1 MG TAB PO SCH (09:45)
[2023-02-15] MEDS ORDERED: LevoFLOXacin 500 mg/D5W 500 MG in Premix 1 BAG IVPB SCH (10:00)
[2023-02-15] MEDS ORDERED: Amlodipine 5 MG TAB PO SCH (14:30)
[2023-02-15] MEDS: Enoxaparin 80 MG (0.8 mL) SYRINGE SC SCH (14:48)
[2023-02-15] MEDS: Carvedilol 3.125 MG TAB PO SCH (17:29)
[2023-02-15] MEDS: Mirtazapine 15 MG TAB PO SCH (20:25)
[2023-02-16] MEDS: Sodium Chloride 0.9% 1,000 ML IV SCH (01:41)
[2023-02-16] MEDS ORDERED: Amlodipine 5 MG TAB PO SCH ×2 (09:00→09:45)
[2023-02-16] MEDS ORDERED: Apixaban 2.5 MG TAB PO SCH (09:00)
[2023-02-16] MEDS: Famotidine 20 MG TAB PO SCH (09:29)
[2023-02-16] MEDS: Folic Acid 1 MG TAB PO SCH (09:29)
[2023-02-16] MEDS: Carvedilol 3.125 MG TAB PO SCH (09:33)
[2023-02-16] MEDS ORDERED: Furosemide 20 MG (2 mL) VIAL SLOW IVP SCH (09:45)
[2023-02-16 10:34] LABS: Anion Gap 10 mmol/L (10-20); BUN (Urea Nitrogen) 18 mg/dL (8.4-25.7); Calc. Creatinine Clearance 27 mL/min (70-130); Calcium 9.2 mg/dL (7.8-10.44); Carbon Dioxide 20 mmol/L (23-31); Chloride 112 mmol/L (98-107); Estimated GFR 29; Glucose 123 mg/dL (83-110); Potassium 4.4 mmol/L (3.5-5.1); Sodium 138 mmol/L (136-145)
[2023-02-16 15:06] VITALS: BP 172/79
[2023-02-16] MEDS ORDERED: Sulfameth/Trimethoprim DS 800-160mg TAB PO SCH (15:30)
[2023-02-16 15:50] VITALS: TEMP 97.9
[2023-02-17] MEDS ORDERED: Amlodipine 10 MG TAB PO SCH (09:00)
[2023-02-17] MEDS ORDERED: Sulfameth/Trimethoprim DS 800-160mg TAB PO SCH (09:00)
== END 2023-02-16 18:56 | DRG 389 ==
LOC: ERS 20:32 → ERHOLD 02-12 00:51 → 2NO 02-12 16:53
PROVIDERS: ADMIT Internal Medicine; ATTEND Internal Medicine
DX: K56.609 Unspecified intestinal obstruction, unspecified as to partial versus complete obstruction (principal); E87.20 Acidosis, unspecified; N39.0 Urinary tract infection, site not specified; N17.9 Acute kidney failure, unspecified; I48.20 Chronic atrial fibrillation, unspecified; K59.09 Other constipation; F03.90 Unspecified dementia, unspecified severity, without behavioral disturbance, psychotic disturbance, mood disturbance, and anxiety; I12.9 Hypertensive chronic kidney disease with stage 1 through stage 4 chronic kidney disease, or unspecified chronic kidney disease; E11.22 Type 2 diabetes mellitus with diabetic chronic kidney disease; N18.30 Chronic kidney disease, stage 3 unspecified; E87.5 Hyperkalemia; Z66 Do not resuscitate; Z88.0 Allergy status to penicillin; Z79.899 Other long term (current) drug therapy; Z90.49 Acquired absence of other specified parts of digestive tract; Z87.891 Personal history of nicotine dependence; Z86.711 Personal history of pulmonary embolism; Z51.5 Encounter for palliative care
CPT/HCPCS: 36415; 36416; 74019; 74176; 74250; 80048; 80053; 80162; 81001; 83605; 83690; 83735; 84100; 84443; 85025; 85520; 87077; 87086; 87186; 93005; 93306; J1650; J1815; J1940; J1956; J2405; J3475; J7050; Q9963

== ENCOUNTER 2023-12-07 11:01 | Inpatient (IN) | payer MEDICARE, MEDICAID ==
[2023-12-07 12:13] LABS: #Basophils Less than 0.03 10x3/uL (0.0-0.2); #Eosinophils Less than 0.03 10x3/uL (0.0-0.7); %Basophils 0.1 % (0.0-1.0); %Lymphocytes 7.3 % (21.0-51.0); %Monocytes 7.9 % (0.0-10.0); %Neutrophils 83.9 % (42.0-75.0); Hematocrit 34.1 % (42.0-52.0); Hemoglobin 11.2 g/dL (14.0-18.0); Mean Corpuscular HGB CONC 32.8 g/dL (32.0-36.0); Mean Corpuscular Hemoglobin 27.7 pg (27.0-31.0); Mean Corpuscular Volume 84.4 fL (78.0-98.0); Mean Platelet Volume 9.7 fL (7.4-10.4); Platelet Count 251 10x3/uL (130-400); RBC Distribution Width 13.6 % (11.5-14.5); Red Blood Cell (RBC) Count 4.04 mill/uL (4.70-6.10)
[2023-12-07 12:42] LABS: ALT (SGPT) 11 U/L (8-55); AST (SGOT) 12 U/L (5-34); Albumin 3.2 g/dL (3.4-4.8); Alkaline Phosphatase 55 U/L (40-110); Anion Gap 17 mmol/L (10-20); BUN (Urea Nitrogen) 67 mg/dL (8.4-25.7); Bilirubin, Total 0.5 mg/dL (0.2-1.2); Calc. Creatinine Clearance 0 mL/min (70-130); Calcium 9.7 mg/dL (7.8-10.44); Carbon Dioxide 15 mmol/L (23-31); Chloride 108 mmol/L (98-107); Estimated GFR 22; Globulin 3.4 g/dL (2.4-3.5); Glucose 165 mg/dL (83-110); Potassium 5.3 mmol/L (3.5-5.1); Protein, Total 6.6 g/dL (5.8-8.1); Sodium 135 mmol/L (136-145)
[2023-12-07 12:43] LABS: Troponin I 0.093 ng/mL (< 0.028)
[2023-12-07] MEDS ORDERED: dilTIAZem 25 MG/5 ML VIAL ONE (14:01)
[2023-12-07] MEDS ORDERED: Guaifenesin DM 100-10/5 ML UDCUP PO PRN (17:02)
[2023-12-07] MEDS ORDERED: Bisacodyl 10 MG SUPP PR PRN (17:02)
[2023-12-07] MEDS ORDERED: Ondansetron PF 4 MG/2 ML Vial IVP PRN (17:02)
[2023-12-07] MEDS ORDERED: Acetaminophen/Codeine 30-300mg Tablet PO PRN (17:02)
[2023-12-07] MEDS ORDERED: Ondansetron ODT 4 MG TAB PO PRN (17:02)
[2023-12-07] MEDS ORDERED: Senokot S 8.6-50 MG TAB PO PRN (17:02)
[2023-12-07] MEDS ORDERED: Bisacodyl 5 MG TAB PO PRN (17:02)
[2023-12-07] MEDS ORDERED: Acetaminophen 650 MG Suppository PR PRN (17:02)
[2023-12-07] MEDS ORDERED: Dextrose 5% in Water 1,000 ML IV PRN (17:06)
[2023-12-07] MEDS ORDERED: Dextrose 50% Abboject 50 ML SYRINGE SLOW IVP PRN (17:06)
[2023-12-07] MEDS ORDERED: Glucagon 1 MG/ML KIT IM PRN (17:06)
[2023-12-07] MEDS ORDERED: dilTIAZem 125 MG in Sodium Chloride 0.9% 100 ML IVPB SCH ×2 (18:00→18:30)
[2023-12-07 18:30] LABS: Troponin I 0.123 ng/mL (< 0.028)
[2023-12-07] MEDS ORDERED: Diltiazem HCl/D5W 125 MG in Premix 1 BAG IVPB SCH (21:15)
[2023-12-07] MEDS: Acetaminophen 325 MG TAB PO PRN (21:56)
[2023-12-07] MEDS: Famotidine 20 MG TAB PO SCH (21:57)
[2023-12-07] MEDS: Apixaban 2.5 MG TAB PO SCH (21:57)
[2023-12-07] MEDS: Doxycycline 100 MG in Sodium Chloride 0.9% 100 ML IVPB SCH (21:58)
[2023-12-07] MEDS: Sodium Chloride 0.9% 1,000 ML IV SCH (21:58)
[2023-12-07] MEDS ORDERED: Doxycycline 100 MG in Sodium Chloride 0.9% 100 ML IVPB SCH (22:00)
[2023-12-08 04:45] LABS: ALT (SGPT) 9 U/L (8-55); AST (SGOT) 12 U/L (5-34); Albumin 3.1 g/dL (3.4-4.8); Alkaline Phosphatase 51 U/L (40-110); Anion Gap 17 mmol/L (10-20); BUN (Urea Nitrogen) 68 mg/dL (8.4-25.7); Bilirubin, Total 0.5 mg/dL (0.2-1.2); Calc. Creatinine Clearance 21 mL/min (70-130); Calcium 9.8 mg/dL (7.8-10.44); Carbon Dioxide 13 mmol/L (23-31); Chloride 113 mmol/L (98-107); Estimated GFR 21; Globulin 3.2 g/dL (2.4-3.5); Glucose 142 mg/dL (83-110); Potassium 4.8 mmol/L (3.5-5.1); Protein, Total 6.3 g/dL (5.8-8.1); Sodium 138 mmol/L (136-145)
[2023-12-08] MEDS: Sodium Chloride 0.9% 1,000 ML IV SCH ×2 (05:44→13:31)
[2023-12-08 06:43] LABS: #Basophils Less than 0.03 10x3/uL (0.0-0.2); #Eosinophils Less than 0.03 10x3/uL (0.0-0.7); %Basophils 0.1 % (0.0-1.0); %Lymphocytes 10.9 % (21.0-51.0); %Neutrophils 79.3 % (42.0-75.0); Hematocrit 35.4 % (42.0-52.0); Hemoglobin 11.4 g/dL (14.0-18.0); Mean Corpuscular HGB CONC 32.2 g/dL (32.0-36.0); Mean Corpuscular Hemoglobin 28.1 pg (27.0-31.0); Mean Corpuscular Volume 87.4 fL (78.0-98.0); Mean Platelet Volume 9.4 fL (7.4-10.4); Platelet Count 235 10x3/uL (130-400); RBC Distribution Width 13.8 % (11.5-14.5); Red Blood Cell (RBC) Count 4.05 mill/uL (4.70-6.10)
[2023-12-08] MEDS: Doxycycline 100 MG in Sodium Chloride 0.9% 100 ML IVPB SCH (09:08)
[2023-12-08] MEDS ORDERED: Acetaminophen/Codeine 30-300mg Tablet PO PRN (09:56)
[2023-12-08] MEDS ORDERED: Albuterol 2.5 MG (3 mL) NEB NEB PRN (09:56)
[2023-12-08 10:09] LABS: Bilirubin Negative (Negative); Blood, Urine Trace (Negative); Clarity Clear (Clear); Glucose, Urine (Dipstick) Normal (Negative); Ketone, Urine Negative (Negative); Leukocyte 500 Leu/uL (Negative); Nitrite Negative (Negative); Protein, Urine (Dipstick) 30 mg/dL (Neg-Trace); Specific Gravity, Urine 1.012 (1.002-1.036); Squamous Epithelial None Seen HPF (0-3); Urobilinogen Normal mg/dL (Less than 2); WBC/HPF 21-50 HPF (0-3); pH, Urine 7.5 (5.0-9.0)
[2023-12-08 10:25] LABS: Influenza A by NAA Not Detected (NotDetected); Influenza B by NAA Not Detected (NotDetected); RSV by NAA Not Detected (NotDetected); SARS-CoV-2 NAA Rapid Test Not Detected (NotDetected)
[2023-12-08 10:33] LABS: Bacteria/HPF 4+ HPF (None Seen)
[2023-12-08 10:34] LABS: Triple Phosphate Crystal 1+ HPF (None Seen)
[2023-12-08] MEDS ORDERED: Floranex 1 GM Packet PO PRN (10:35)
[2023-12-08 12:25] VITALS: BMI 24.1
[2023-12-08] MEDS ORDERED: Vancomycin Dose by Levels Sliding Scale (Wt 71-99) FS SCH (22:45)
[2023-12-08] MEDS: Vancomycin (BATCH) 1.5 GM in Premix 1 BAG IVPB SCH (23:04)
[2023-12-09 05:54] LABS: #Basophils Less than 0.03 10x3/uL (0.0-0.2); #Eosinophils Less than 0.03 10x3/uL (0.0-0.7); %Basophils 0.1 % (0.0-1.0); %Eosinophils 0.1 % (0.0-10.0); %Lymphocytes 11.9 % (21.0-51.0); %Monocytes 8.6 % (0.0-10.0); %Neutrophils 78.8 % (42.0-75.0); Hematocrit 36.3 % (42.0-52.0); Hemoglobin 11.1 g/dL (14.0-18.0); Mean Corpuscular HGB CONC 30.6 g/dL (32.0-36.0); Mean Corpuscular Volume 91.4 fL (78.0-98.0); Mean Platelet Volume 9.8 fL (7.4-10.4); Platelet Count 216 10x3/uL (130-400); Red Blood Cell (RBC) Count 3.97 mill/uL (4.70-6.10)
[2023-12-09 06:16] LABS: ALT (SGPT) 8 U/L (8-55); AST (SGOT) 10 U/L (5-34); Albumin 2.9 g/dL (3.4-4.8); Alkaline Phosphatase 48 U/L (40-110); Anion Gap 16 mmol/L (10-20); BUN (Urea Nitrogen) 60 mg/dL (8.4-25.7); Bilirubin, Total 0.5 mg/dL (0.2-1.2); Calc. Creatinine Clearance 23 mL/min (70-130); Calcium 9.8 mg/dL (7.8-10.44); Carbon Dioxide 12 mmol/L (23-31); Chloride 119 mmol/L (98-107); Estimated GFR 24; Glucose 134 mg/dL (83-110); Potassium 4.2 mmol/L (3.5-5.1); Protein, Total 5.9 g/dL (5.8-8.1); Sodium 143 mmol/L (136-145)
[2023-12-09] MEDS ORDERED: Lactated Ringer's 1,000 ML IV SCH (08:15)
[2023-12-09] MEDS: dilTIAZem 30 MG TAB PO SCH ×2 (08:48→11:02)
[2023-12-09] MEDS: Multivitamin W/ Minerals 1 TAB PO SCH (08:48)
[2023-12-09] MEDS: Docusate 100 MG CAP PO SCH (08:48)
[2023-12-09] MEDS: Cefepime 1 GM in Sodium Chloride 0.9% 100 ML IVPB SCH (08:48)
[2023-12-09] MEDS: Loratadine 10 MG TAB PO SCH (08:48)
[2023-12-09] MEDS ORDERED: Cefepime 0.5 GM in Admixture Fee 1 EACH IVPB SCH (09:00)
[2023-12-09] MEDS: Sodium Bicarbonate 150 MEQ in Dextrose 5% in Water 1,000 ML IV SCH (11:02)
[2023-12-09 23:34] LABS: Vancomycin, Trough 11.2 ug/mL
[2023-12-10 04:56] LABS: #Basophils Less than 0.03 10x3/uL (0.0-0.2); #Eosinophils Less than 0.03 10x3/uL (0.0-0.7); %Basophils 0.2 % (0.0-1.0); %Eosinophils 0.1 % (0.0-10.0); Hematocrit 31.3 % (42.0-52.0); Mean Corpuscular HGB CONC 31.9 g/dL (32.0-36.0); Mean Corpuscular Volume 87.7 fL (78.0-98.0); Mean Platelet Volume 9.9 fL (7.4-10.4); Platelet Count 234 10x3/uL (130-400); RBC Distribution Width 13.9 % (11.5-14.5); Red Blood Cell (RBC) Count 3.57 mill/uL (4.70-6.10)
[2023-12-10 05:26] LABS: Anion Gap 14 mmol/L (10-20); BUN (Urea Nitrogen) 55 mg/dL (8.4-25.7); Calc. Creatinine Clearance 22 mL/min (70-130); Calcium 9.5 mg/dL (7.8-10.44); Carbon Dioxide 18 mmol/L (23-31); Chloride 118 mmol/L (98-107); Estimated GFR 22; Glucose 232 mg/dL (83-110); Magnesium 2.1 mg/dL (1.6-2.6); Potassium 3.7 mmol/L (3.5-5.1); Sodium 146 mmol/L (136-145)
[2023-12-10] MEDS: Sodium Bicarbonate 75 MEQ in Dextrose 5 %-0.45 % NaCl 1,000 ML IV SCH (10:38)
[2023-12-10] MEDS: Vancomycin HCl 750 MG in Sodium Chloride 0.9% 250 ML 250 ML IVPB SCH (10:39)
[2023-12-10] MEDS: Insulin Lispro 100 UNIT/ML 10 ML VIAL SC PRN (16:51)
[2023-12-11 04:06] LABS: #Basophils Less than 0.03 10x3/uL (0.0-0.2); %Basophils 0.1 % (0.0-1.0); %Eosinophils 0.9 % (0.0-10.0); %Lymphocytes 11.7 % (21.0-51.0); %Monocytes 6.1 % (0.0-10.0); %Neutrophils 80.5 % (42.0-75.0); Hematocrit 31.4 % (42.0-52.0); Hemoglobin 9.9 g/dL (14.0-18.0); Mean Corpuscular HGB CONC 31.5 g/dL (32.0-36.0); Mean Corpuscular Hemoglobin 28.2 pg (27.0-31.0); Mean Corpuscular Volume 89.5 fL (78.0-98.0); Mean Platelet Volume 10.2 fL (7.4-10.4); Platelet Count 214 10x3/uL (130-400); RBC Distribution Width 13.8 % (11.5-14.5); Red Blood Cell (RBC) Count 3.51 mill/uL (4.70-6.10)
[2023-12-11 04:28] LABS: Anion Gap 13 mmol/L (10-20); BUN (Urea Nitrogen) 48 mg/dL (8.4-25.7); Calc. Creatinine Clearance 25 mL/min (70-130); Calcium 9.3 mg/dL (7.8-10.44); Carbon Dioxide 18 mmol/L (23-31); Chloride 119 mmol/L (98-107); Estimated GFR 27; Glucose 207 mg/dL (83-110); Potassium 3.3 mmol/L (3.5-5.1); Sodium 147 mmol/L (136-145)
[2023-12-11 08:16] LABS: Vancomycin, Trough 12.8 ug/mL
[2023-12-11] MEDS: Vancomycin HCl 750 MG in Sodium Chloride 0.9% 250 ML 250 ML IVPB SCH (08:46)
[2023-12-11] MEDS: Potassium Chloride 40 MEQ in Dextrose 5% in Water 1,000 ML IV SCH (09:59)
[2023-12-11] MEDS: Loratadine 10 MG TAB PO SCH (10:19)
[2023-12-11] MEDS ORDERED: Vancomycin Dose by Levels Sliding Scale (Wt 71-99) FS SCH (10:45)
[2023-12-11] MEDS ORDERED: Ampicillin 2 GM in Sodium Chloride 0.9% 100 ML IVPB SCH (15:00)
[2023-12-12 04:39] LABS: #Basophils 0.03 10x3/uL (0.0-0.2); %Basophils 0.2 % (0.0-1.0); %Eosinophils 0.8 % (0.0-10.0); %Lymphocytes 10.2 % (21.0-51.0); %Monocytes 5.6 % (0.0-10.0); %Neutrophils 82.6 % (42.0-75.0); Hematocrit 34.8 % (42.0-52.0); Hemoglobin 10.7 g/dL (14.0-18.0); Mean Corpuscular HGB CONC 30.7 g/dL (32.0-36.0); Mean Corpuscular Hemoglobin 27.8 pg (27.0-31.0); Mean Corpuscular Volume 90.4 fL (78.0-98.0); Mean Platelet Volume 10.3 fL (7.4-10.4); Platelet Count 239 10x3/uL (130-400); Red Blood Cell (RBC) Count 3.85 mill/uL (4.70-6.10)
[2023-12-12 04:57] LABS: Anion Gap 12 mmol/L (10-20); BUN (Urea Nitrogen) 46 mg/dL (8.4-25.7); Calc. Creatinine Clearance 25 mL/min (70-130); Calcium 9.6 mg/dL (7.8-10.44); Carbon Dioxide 17 mmol/L (23-31); Chloride 122 mmol/L (98-107); Estimated GFR 26; Glucose 216 mg/dL (83-110); Potassium 3.6 mmol/L (3.5-5.1); Sodium 147 mmol/L (136-145)
[2023-12-12 08:15] LABS: Vancomycin, Trough 14.7 ug/mL
[2023-12-12] MEDS ORDERED: Labetalol HCl 100 MG/20 ML VIAL SLOW IVP PRN (10:42)
[2023-12-12] MEDS: Vancomycin 1 GM in Premix 1 BAG IVPB SCH (11:07)
[2023-12-12] MEDS: Labetalol HCl 100 MG/20 ML VIAL SLOW IVP SCH (11:07)
[2023-12-12] MEDS: Potassium Chloride 40 MEQ in Dextrose 5% in Water 1,000 ML IV SCH (12:46)
[2023-12-13 04:41] LABS: #Basophils 0.03 10x3/uL (0.0-0.2); %Basophils 0.2 % (0.0-1.0); %Eosinophils 1.6 % (0.0-10.0); %Lymphocytes 11.4 % (21.0-51.0); %Monocytes 6.3 % (0.0-10.0); %Neutrophils 79.7 % (42.0-75.0); Hematocrit 32.2 % (42.0-52.0); Mean Corpuscular HGB CONC 31.1 g/dL (32.0-36.0); Mean Corpuscular Hemoglobin 27.9 pg (27.0-31.0); Mean Corpuscular Volume 89.7 fL (78.0-98.0); Mean Platelet Volume 10.9 fL (7.4-10.4); Platelet Count 223 10x3/uL (130-400); Red Blood Cell (RBC) Count 3.59 mill/uL (4.70-6.10)
[2023-12-13 05:14] LABS: Anion Gap 13 mmol/L (10-20); BUN (Urea Nitrogen) 40 mg/dL (8.4-25.7); Calc. Creatinine Clearance 25 mL/min (70-130); Calcium 9.2 mg/dL (7.8-10.44); Carbon Dioxide 17 mmol/L (23-31); Chloride 120 mmol/L (98-107); Estimated GFR 27; Glucose 192 mg/dL (83-110); Sodium 146 mmol/L (136-145)
[2023-12-13 11:56] LABS: Vancomycin, Trough 16.8 ug/mL
[2023-12-13] MEDS: Vancomycin HCl 500 MG in Sodium Chloride 0.9% 100 ML IVPB SCH (13:05)
[2023-12-13] MEDS: cefTRIAXone\\ROCEPHIN 1 GM in Sodium Chloride 0.9% 100 ML IVPB SCH (22:10)
[2023-12-14] MEDS: Dextrose 5% in Water 1,000 ML IV SCH (09:51)
[2023-12-14] MEDS: Vancomycin HCl 750 MG in Sodium Chloride 0.9% 250 ML 250 ML IVPB SCH (16:36)
[2023-12-15 03:10] LABS: Anion Gap 13 mmol/L (10-20); BUN (Urea Nitrogen) 29 mg/dL (8.4-25.7); Calc. Creatinine Clearance 31 mL/min (70-130); Calcium 9.1 mg/dL (7.8-10.44); Carbon Dioxide 13 mmol/L (23-31); Chloride 113 mmol/L (98-107); Estimated GFR 34; Glucose 232 mg/dL (83-110); Potassium 3.9 mmol/L (3.5-5.1); Sodium 135 mmol/L (136-145)
[2023-12-15 17:41] LABS: Vancomycin, Trough 15.2 ug/mL
[2023-12-15] MEDS: Vancomycin HCl 750 MG in Sodium Chloride 0.9% 250 ML 250 ML IVPB SCH (20:29)
[2023-12-16 09:56] LABS: #Basophils Less than 0.03 10x3/uL (0.0-0.2); %Basophils 0.2 % (0.0-1.0); %Eosinophils 1.2 % (0.0-10.0); %Lymphocytes 12.4 % (21.0-51.0); %Monocytes 7.1 % (0.0-10.0); %Neutrophils 78.4 % (42.0-75.0); Hematocrit 27.8 % (42.0-52.0); Hemoglobin 8.9 g/dL (14.0-18.0); Mean Corpuscular Hemoglobin 27.8 pg (27.0-31.0); Mean Corpuscular Volume 86.9 fL (78.0-98.0); Platelet Count 263 10x3/uL (130-400); RBC Distribution Width 13.3 % (11.5-14.5)
[2023-12-16 10:04] LABS: Anion Gap 11 mmol/L (10-20); BUN (Urea Nitrogen) 24 mg/dL (8.4-25.7); Calc. Creatinine Clearance 30 mL/min (70-130); Carbon Dioxide 16 mmol/L (23-31); Chloride 108 mmol/L (98-107); Estimated GFR 33; Glucose 223 mg/dL (83-110); Potassium 3.6 mmol/L (3.5-5.1); Sodium 131 mmol/L (136-145)
[2023-12-16 20:28] LABS: Vancomycin, Trough 16.3 ug/mL
[2023-12-16] MEDS ORDERED: Vancomycin HCl 500 MG in Sodium Chloride 0.9% 100 ML IV SCH (20:45)
[2023-12-16] MEDS: Vancomycin HCl 750 MG in Sodium Chloride 0.9% 250 ML 250 ML IVPB SCH (21:13)
[2023-12-17 04:04] LABS: #Basophils Less than 0.03 10x3/uL (0.0-0.2); %Basophils 0.2 % (0.0-1.0); %Eosinophils 1.7 % (0.0-10.0); %Lymphocytes 13.7 % (21.0-51.0); %Monocytes 7.1 % (0.0-10.0); %Neutrophils 76.3 % (42.0-75.0); Hematocrit 27.1 % (42.0-52.0); Hemoglobin 8.7 g/dL (14.0-18.0); Mean Corpuscular HGB CONC 32.1 g/dL (32.0-36.0); Mean Corpuscular Hemoglobin 28.2 pg (27.0-31.0); Mean Corpuscular Volume 87.7 fL (78.0-98.0); Mean Platelet Volume 10.1 fL (7.4-10.4); Platelet Count 244 10x3/uL (130-400); RBC Distribution Width 13.3 % (11.5-14.5); Red Blood Cell (RBC) Count 3.09 mill/uL (4.70-6.10)
[2023-12-17 04:19] LABS: Anion Gap 11 mmol/L (10-20); BUN (Urea Nitrogen) 21 mg/dL (8.4-25.7); Calc. Creatinine Clearance 33 mL/min (70-130); Calcium 8.7 mg/dL (7.8-10.44); Carbon Dioxide 13 mmol/L (23-31); Chloride 108 mmol/L (98-107); Estimated GFR 36; Glucose 205 mg/dL (83-110); Sodium 129 mmol/L (136-145)
[2023-12-17] MEDS: Famotidine 20 MG TAB PO SCH (20:49)
[2023-12-17 22:12] LABS: Vancomycin, Trough 16.6 ug/mL
[2023-12-18] MEDS: Vancomycin HCl 750 MG in Sodium Chloride 0.9% 250 ML 250 ML IVPB SCH (01:18)
[2023-12-18 04:14] LABS: #Basophils Less than 0.03 10x3/uL (0.0-0.2); %Basophils 0.1 % (0.0-1.0); %Eosinophils 1.4 % (0.0-10.0); %Lymphocytes 13.5 % (21.0-51.0); %Monocytes 7.1 % (0.0-10.0); %Neutrophils 76.9 % (42.0-75.0); Hematocrit 23.4 % (42.0-52.0); Hemoglobin 7.6 g/dL (14.0-18.0); Mean Corpuscular HGB CONC 32.5 g/dL (32.0-36.0); Mean Corpuscular Hemoglobin 27.9 pg (27.0-31.0); Mean Platelet Volume 10.3 fL (7.4-10.4); Platelet Count 315 10x3/uL (130-400); RBC Distribution Width 13.4 % (11.5-14.5); Red Blood Cell (RBC) Count 2.72 mill/uL (4.70-6.10)
[2023-12-18 04:31] LABS: Anion Gap 12 mmol/L (10-20); BUN (Urea Nitrogen) 21 mg/dL (8.4-25.7); Calc. Creatinine Clearance 28 mL/min (70-130); Calcium 9.2 mg/dL (7.8-10.44); Carbon Dioxide 15 mmol/L (23-31); Chloride 106 mmol/L (98-107); Estimated GFR 30; Glucose 196 mg/dL (83-110); Potassium 3.1 mmol/L (3.5-5.1); Sodium 130 mmol/L (136-145)
[2023-12-18] MEDS: Sodium Chloride 0.9% 1,000 ML IV SCH (09:34)
[2023-12-18] MEDS: Potassium Chloride 10 MEQ in Premix 1 BAG IVPB SCH (09:35)
[2023-12-18] MEDS: Potassium Chloride 20 MEQ in Premix 1 BAG IVPB SCH (11:10)
[2023-12-18] MEDS: Metoprolol Tartrate 25 MG TAB PO SCH (20:43)
[2023-12-19 04:25] LABS: #Basophils Less than 0.03 10x3/uL (0.0-0.2); %Basophils 0.2 % (0.0-1.0); %Eosinophils 1.8 % (0.0-10.0); %Lymphocytes 11.8 % (21.0-51.0); %Monocytes 6.7 % (0.0-10.0); %Neutrophils 78.8 % (42.0-75.0); Hematocrit 24.5 % (42.0-52.0); Hemoglobin 8.2 g/dL (14.0-18.0); Mean Corpuscular HGB CONC 33.5 g/dL (32.0-36.0); Mean Corpuscular Hemoglobin 28.5 pg (27.0-31.0); Mean Corpuscular Volume 85.1 fL (78.0-98.0); Mean Platelet Volume 9.9 fL (7.4-10.4); Platelet Count 275 10x3/uL (130-400); RBC Distribution Width 13.5 % (11.5-14.5); Red Blood Cell (RBC) Count 2.88 mill/uL (4.70-6.10)
[2023-12-19 04:32] LABS: Anion Gap 11 mmol/L (10-20); BUN (Urea Nitrogen) 21 mg/dL (8.4-25.7); Calc. Creatinine Clearance 30 mL/min (70-130); Calcium 8.7 mg/dL (7.8-10.44); Carbon Dioxide 14 mmol/L (23-31); Chloride 113 mmol/L (98-107); Estimated GFR 33; Glucose 133 mg/dL (83-110); Potassium 3.1 mmol/L (3.5-5.1); Sodium 135 mmol/L (136-145)
[2023-12-19 05:11] LABS: Magnesium 1.7 mg/dL (1.6-2.6)
[2023-12-19 05:12] LABS: Vancomycin, Trough 16.8 ug/mL
[2023-12-19] MEDS: Amlodipine 5 MG TAB PO SCH (08:06)
[2023-12-19] MEDS: Potassium Chloride 20 MEQ in Premix 1 BAG IVPB SCH (09:51)
[2023-12-19] MEDS ORDERED: Potassium Chloride 20 MEQ in Premix 1 BAG IVPB SCH (11:30)
[2023-12-19] MEDS: Vancomycin HCl 500 MG in Sodium Chloride 0.9% 100 ML IVPB SCH (13:03)
[2023-12-19 16:06] VITALS: BP 124/71; TEMP 98.3
== END 2023-12-19 18:43 | DRG 871 ==
LOC: ERS 11:01 → SUATTDRO 11:01 → 2NO 17:00 → OBSVTOIN 12-08 09:10
PROVIDERS: ADMIT Internal Medicine; ATTEND Student in an Organized Health Care Education/Training Program
DX: A41.81 Sepsis due to Enterococcus (principal); I21.A1 Myocardial infarction type 2; J18.9 Pneumonia, unspecified organism; N17.9 Acute kidney failure, unspecified; E87.1 Hypo-osmolality and hyponatremia; N39.0 Urinary tract infection, site not specified; I48.91 Unspecified atrial fibrillation; I12.9 Hypertensive chronic kidney disease with stage 1 through stage 4 chronic kidney disease, or unspecified chronic kidney disease; N18.30 Chronic kidney disease, stage 3 unspecified; E11.22 Type 2 diabetes mellitus with diabetic chronic kidney disease; Z66 Do not resuscitate; G30.9 Alzheimer's disease, unspecified; F02.80 Dementia in other diseases classified elsewhere, unspecified severity, without behavioral disturbance, psychotic disturbance, mood disturbance, and anxiety; J40 Bronchitis, not specified as acute or chronic; K21.9 Gastro-esophageal reflux disease without esophagitis; E87.5 Hyperkalemia; D63.1 Anemia in chronic kidney disease; B96.4 Proteus (mirabilis) (morganii) as the cause of diseases classified elsewhere; A41.4 Sepsis due to anaerobes; Z88.0 Allergy status to penicillin; Z90.49 Acquired absence of other specified parts of digestive tract; Z87.891 Personal history of nicotine dependence; Z79.01 Long term (current) use of anticoagulants; Z79.899 Other long term (current) drug therapy; Z86.711 Personal history of pulmonary embolism; Z79.84 Long term (current) use of oral hypoglycemic drugs
CPT/HCPCS: 0241U; 36415; 36416; 71045; 71250; 80048; 80053; 80202; 81001; 83735; 83880; 84484; 85025; 87040; 87077; 87086; 87149; 87186; 93005; 93306; 96374; 96376; G0378; J0692; J0696; J1815; J3370; J3370-JW; J3480; J7030; J7042; J7050; J7070

== ENCOUNTER 2024-01-14 07:36 | Emergency (ER) | payer MEDICARE, OTHER ==
[2024-01-14 08:20] LABS: Hemoglobin 9.3 g/dL (14.0-18.0); Mean Platelet Volume 9.7 fL (7.4-10.4); RBC Distribution Width 13.6 % (11.5-14.5)
[2024-01-14 08:31] LABS: ALT (SGPT) 21 U/L (8-55); AST (SGOT) 34 U/L (5-34); Albumin 2.4 g/dL (3.4-4.8); Alkaline Phosphatase 93 U/L (40-110); Anion Gap 17 mmol/L (10-20); BUN (Urea Nitrogen) 31 mg/dL (8.4-25.7); Bilirubin, Total 0.5 mg/dL (0.2-1.2); Calc. Creatinine Clearance 0 mL/min (70-130); Carbon Dioxide 15 mmol/L (23-31); Chloride 109 mmol/L (98-107); Estimated GFR 25; Globulin 3.3 g/dL (2.4-3.5); Glucose 181 mg/dL (83-110); Potassium 4.9 mmol/L (3.5-5.1); Protein, Total 5.7 g/dL (5.8-8.1); Sodium 136 mmol/L (136-145)
[2024-01-14 08:34] LABS: #Basophils 0.05 10x3/uL (0.0-0.2); %Basophils 0.4 % (0.0-1.0); %Eosinophils 0.4 % (0.0-10.0); %Lymphocytes 11.1 % (21.0-51.0); %Monocytes 6.2 % (0.0-10.0); %Neutrophils 80.7 % (42.0-75.0); Hematocrit 29.7 % (42.0-52.0); Mean Corpuscular HGB CONC 31.3 g/dL (32.0-36.0); Mean Corpuscular Hemoglobin 27.3 pg (27.0-31.0); Mean Corpuscular Volume 87.1 fL (78.0-98.0); Platelet Count 425 10x3/uL (130-400); Red Blood Cell (RBC) Count 3.41 mill/uL (4.70-6.10)
[2024-01-14] MEDS ORDERED: cefTRIAXone (ROCEPHIN) 2 GM VIAL ONE (10:13)
[2024-01-14] MEDS ORDERED: Sodium Chloride 0.9% 100 ML ONE (10:13)
[2024-01-14 10:49] LABS: Bacteria/HPF None Seen HPF (None Seen); Bilirubin Negative (Negative); Blood, Urine 1+ (Negative); CAUTI Indications for Culture Alt mental st,lethar; Clarity Clear (Clear); Glucose, Urine (Dipstick) Normal (Negative); Ketone, Urine Negative (Negative); Leukocyte Negative Leu/uL (Negative); Nitrite Negative (Negative); Protein, Urine (Dipstick) 30 mg/dL (Neg-Trace); Specific Gravity, Urine 1.013 (1.002-1.036); Squamous Epithelial 0-3 HPF (0-3); Urobilinogen Normal mg/dL (Less than 2); WBC/HPF 0-3 HPF (0-3)
[2024-01-14 10:52] LABS: Urine Culture Reflex No No
[2024-01-14 12:41] LABS: Troponin I Less than 0.010 ng/mL (< 0.028)
[2024-01-14 13:41] LABS: Lactic Acid 1.31 mmol/L (0.5-2.2)
== END 2024-01-14 15:08 ==
LOC: ERS 07:36
DX: R41.82 Altered mental status, unspecified (principal); I12.9 Hypertensive chronic kidney disease with stage 1 through stage 4 chronic kidney disease, or unspecified chronic kidney disease; E11.22 Type 2 diabetes mellitus with diabetic chronic kidney disease; N18.30 Chronic kidney disease, stage 3 unspecified; J90 Pleural effusion, not elsewhere classified
CPT/HCPCS: 71045; 80053; 81001; 83605; 84484; 85025; 87040; 87077; 87086; 87149 ×2; 87428; 93005; 94760; 96361; 96365; 99284; J0696; 36415

== ENCOUNTER 2024-01-15 12:15 | Emergency (ER) | payer MEDICARE, OTHER ==
[2024-01-15 12:59] LABS: #Basophils 0.04 10x3/uL (0.0-0.2); %Basophils 0.4 % (0.0-1.0); %Eosinophils 0.8 % (0.0-10.0); %Lymphocytes 18.9 % (21.0-51.0); %Monocytes 6.8 % (0.0-10.0); %Neutrophils 72.4 % (42.0-75.0); Hematocrit 29.6 % (42.0-52.0); Hemoglobin 9.3 g/dL (14.0-18.0); Mean Corpuscular HGB CONC 31.4 g/dL (32.0-36.0); Mean Corpuscular Hemoglobin 26.8 pg (27.0-31.0); Mean Corpuscular Volume 85.3 fL (78.0-98.0); Mean Platelet Volume 9.7 fL (7.4-10.4); Platelet Count 451 10x3/uL (130-400); RBC Distribution Width 13.7 % (11.5-14.5); Red Blood Cell (RBC) Count 3.47 mill/uL (4.70-6.10)
[2024-01-15 13:20] LABS: Troponin I Less than 0.010 ng/mL (< 0.028)
[2024-01-15 13:49] LABS: ALT (SGPT) 18 U/L (8-55); AST (SGOT) 24 U/L (5-34); Albumin 2.3 g/dL (3.4-4.8); Alkaline Phosphatase 82 U/L (40-110); Anion Gap 14 mmol/L (10-20); BUN (Urea Nitrogen) 28 mg/dL (8.4-25.7); Bilirubin, Total 0.2 mg/dL (0.2-1.2); Calc. Creatinine Clearance 0 mL/min (70-130); Calcium 9.4 mg/dL (7.8-10.44); Carbon Dioxide 18 mmol/L (23-31); Chloride 107 mmol/L (98-107); Estimated GFR 32; Globulin 3.8 g/dL (2.4-3.5); Glucose 218 mg/dL (83-110); Magnesium 1.6 mg/dL (1.6-2.6); Potassium 4.1 mmol/L (3.5-5.1); Protein, Total 6.1 g/dL (5.8-8.1); Sodium 135 mmol/L (136-145)
== END 2024-01-15 15:20 | disposition home or self-care (01) ==
LOC: ERS 12:15
DX: D63.8 Anemia in other chronic diseases classified elsewhere (principal); E11.22 Type 2 diabetes mellitus with diabetic chronic kidney disease; N18.30 Chronic kidney disease, stage 3 unspecified; I12.9 Hypertensive chronic kidney disease with stage 1 through stage 4 chronic kidney disease, or unspecified chronic kidney disease; Z55.6 Problems related to health literacy
CPT/HCPCS: 36416; 71045; 80053; 83605; 83735; 84484; 85025; 87040; 93005